=== PATIENT | male | born 1970 | race Caucasian/White ===

== ENCOUNTER 2017-08-24 21:40 | Inpatient (IN) | payer BC ==
--- NOTE | 2017-08-24 22:23 | PDOC ---
Attending Attestation - HPI HPI: 08/24/17 23:25 Patient is a 47 year old male with a significant past medical history of who presents to the ED with complaints of lightheadedness this afternoon. Patient reports feeling flushed this afternoon leading to a near syncopal episode. He reports experiencing these episodes while watching a sports game but does not know what might have triggered it. Patient reports experiencing episodes of SOB and chest pain. Patient currently denies any physical complaints in the ED. Denies nausea, vomiting. Denies fever, chills. Denies contact with sick individuals, out of state. Denies any other symptoms. Allergies: None Social history: No smoking. No alcohol. No illicit drugs. Surgical history: None PMD: Gianni Anaya <Torsten Benjamin - Last Filed: 08/24/17 23:25> - Resident Resident Name: RajanMadyson - ED Attending Attestation I have performed the following: I have examined & evaluated the patient, The case was reviewed & discussed with the resident, I agree w/resident's findings & plan, Exceptions are as noted - Physicial Exam PE: 08/29/17 19:28 *Physical Exam General Appearance: Yes: Appropriately Dressed. No: Apparent Distress, Intoxicated HEENT: positive: EOMI, ROMA, Normal ENT Inspection, Normal Voice, TMs Normal, Pharynx Normal. negative: Pale Conjunctivae, Photophobia, Scleral Icterus (R), Scleral Icterus (L) Neck: positive: Trachea midline, Normal Thyroid, Supple. negative: Tender, Rigid, Carotid bruit, Stridor, Lymphadenopathy (R), Lymphadenopathy (L), Thyromegaly Respiratory/Chest: positive: Lungs Clear, Normal Breath Sounds. negative: Chest Tender, Respiratory Distress, Accessory Muscle Use, Labored Respiration, RES, Crackles, Rales, Rhonchi, Stridor, Wheezing, Dullness Cardiovascular: positive: Regular Rhythm, Regular Rate, S1, S2. negative: Edema , JVD, Murmur, Bradycardia, Tachycardia Vascular Pulses: Dorsalis-Pedis (R): 2+, Doralis-Pedis (L): 2+ Gastrointestinal/Abdominal: positive: Normal Bowel Sounds, Flat, Soft. negative : Tender, Organomegaly, Pulsatile Mass, Increased Bowel Sounds, Decreased BS, Distended, Guarding, Rebound, Hernia, Hepatomegaly, Spleenomegaly Lymphatic: negative: Adenopathy, Tenderness Musculoskeletal: positive: Normal Inspection. negative: CVA Tenderness, Decreased Range of Motion Extremity: positive: Normal Capillary Refill, Normal Inspection, Normal Range of Motion, Pelvis Stable. negative: Tender, Pedal Edema, Swelling, Erythema Integumentary: positive: Normal Color, Dry, Warm. 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 negative: EOM Palsy, Facial Droop, Sensory Deficit - Medical Decision Making 08/29/17 19:28 Pt was admitted to hospital <Radhames Bliss - Last Filed: 08/29/17 19:28>
--- NOTE | 2017-08-24 22:36 | PDOC ---
History of Present Illness - General Chief Complaint: Syncope/Near Syncope Stated Complaint: Syncope/Near Syncope Time Seen by Provider: 08/24/17 21:42 - History of Present Illness Initial Comments: 08/24/17 22:14 Patient is a 47 y.o. male with a PMH of MVP and HTN who presents to our ED today after an isolated episode of syncope. Patient states he was watching a sporting event when he noticed facial flushing, palpitations and family noted a 2-3 minute syncopal episode with some bladder incontinence. Patient notes he consumed shrimp approximately 20 minutes prior to the episode and possibly has a remote h/o of shrimp allergy. Patient further notes his father of an [place] @ age 51. Patient denies any prior cardiac history or evaluation. NKDA Surgical: denies Social: denies nicotine, denies alcohol, denies recreational drugs PMD: Dr. Anaya Past History - Past Medical History Allergies/Adverse Reactions: Allergies Allergy/AdvReac Type Severity Reaction Status Date / Time No Known Allergies Allergy Verified 08/24/17 22:25 Home Medications: Ambulatory Orders Losartan/Hydrochlorothiazide [Losartan-Hctz 100-12.5 mg Tab] 1 each PO DAILY 04/03 - Suicide/Smoking/Psychosocial Hx Smoking History: Never smoked Have you smoked in the past 12 months: No Information on smoking cessation initiated: No Hx Alcohol Use: No Drug/Substance Use Hx: No Review of Systems - Review of Systems Constitutional: No: Chills, Fever HEENTM: No: Blurred Vision, Double Vision Respiratory: No: Shortness of Breath Cardiac (ROS): Yes: Lightheadedness, Palpitations, Syncope. No: Chest Pain All Other Systems: Reviewed and Negative *Physical Exam - Vital Signs Last Vital Signs Temp Pulse Resp BP Pulse Ox 98.7 F 67 20 121/69 98 08/24/17 21:54 08/24/17 21:54 08/24/17 21:54 08/24/17 21:54 08/24/17 21:54 - Physical Exam General Appearance: Yes: Nourished, Obese Neck: positive: Trachea midline, Supple Respiratory/Chest: positive: Lungs Clear Cardiovascular: positive: S1, S2, Murmur. negative: Edema, JVD Gastrointestinal/Abdominal: positive: Normal Bowel Sounds, Soft Extremity: positive: Normal Capillary Refill, Normal Inspection Integumentary: positive: Normal Color, Dry, Warm Neurologic: positive: Fully Oriented, Alert ED Treatment Course - LABORATORY CBC & Chemistry Diagram: 08/24/17 22:44 08/24/17 23:30 Medical Decision Making - Medical Decision Making 08/25/17 03:35 Patient is a 47 y.o. male who presents following a syncopal episode. Initial clinical suspicion for CVA vs. ACS vs. Arrhythmia. PLAN: 1. CT Head 2. Cardiac Profile, CBC, CMP, EKG CT Head negative for acute intracranial process. EKG shows NSR HR 59 with no deviations, normal intervals, possible T wave inversion in Lead III and good R wave progression in leads V1-V6. Repeat EKG shows NSR with HR 56 with T wave inversion in Lead III as well as poor R wave progression in Leads V1-V6 concerning for ischemia. Troponin 0.10 --> 0.16; patient to be given ASA and admitted to inpatient medicine floor for further evaluation including cardiac work up. *DC/Admit/Observation/Transfer Diagnosis at time of Disposition: Palpitations - Discharge Dispostion Disposition: HOME Condition at time of disposition: Good Admit: Yes - Referrals - Patient Instructions - Post Discharge Activity
[2017-08-24 22:58] LABS: BASO % 0.3 % (0-2.0); EOS % 0.8 % (0-4.5); HEMATOCRIT 38.8 % (35.4-49); HEMOGLOBIN 13.5 GM/dL (11.7-16.9); LYMPH % 13.5 % (8-40); MCH 30.4 pg (25.7-33.7); MCHC 34.7 g/dl (32.0-35.9); MEAN CELL VOLUME 87.5 fl (80-96); MEAN PLT VOLUME 9.7 fl (7.5-11.1); MONO % 5.2 % (3.8-10.2); NEUT % 80.2 % (42.8-82.8); PLATELET COUNT 177 K/MM3 (134-434); RBC 4.43 M/mm3 (4.00-5.60); RDW 13.3 % (11.9-15.9); WHITE BLOOD COUNT 8.3 K/mm3 (4.0-10.0)
[2017-08-25 00:06] LABS: ALBUMIN 4.2 g/dl (3.4-5.0); ALK PHOS 61 U/L (45-117); ANION GAP 9 (8-16); BILIRUBIN,TOTAL 0.4 mg/dL (0.2-1.0); BLOOD UREA NITROGEN 27 mg/dL (7-18); CALCIUM 8.6 mg/dL (8.5-10.1); CHLORIDE 105 mmol/L (98-107); CO2 27 mmol/L (21-32); CREATININE 1.1 mg/dL (0.7-1.3); GLUCOSE,RANDOM 145 mg/dL (74-106); POTASSIUM 3.8 mmol/L (3.5-5.1); SGOT/AST 26 U/L (15-37); SGPT/ALT 51 U/L (12-78); SODIUM 141 mmol/L (136-145); TOT PROT 7.3 g/dl (6.4-8.2)
[2017-08-25] MEDS ORDERED: ASPIRIN 81 MG CHEWABLE TABLETS PO ONE (03:07)
[2017-08-25] MEDS ORDERED: ASPIRIN 81 MG CHEWABLE TABLETS ONE (03:12)
--- NOTE | 2017-08-25 04:20 | HP ---
CHIEF COMPLAINT: LOC, lightheaded PCP: Gianni [phone] HISTORY OF PRESENT ILLNESS: This is a 47 year old male with PMH MVP and HTN who presented to the ED today from home s/p episode where his face became flushed, he felt lightheaded and family reports he was unresponsive for a few minutes. Pt reports that he later noticed in the ED that his underwear had some urine on it as well. Pt denies any episodes like this in the past. He denies chest pain, SOB, abdominal pain, N /V/D. ER course was notable for: (1) Trop 0.10 (2) Bun 27/Cr 1.1 Recent Travel: Pt denies PAST MEDICAL HISTORY: MVP, HTN PAST SURGICAL HISTORY: Right ankle poorly healed fracture repair Social History: Smoking: pt denies Alcohol: pt denies Drugs: pt denies Family History: father [place], age 65 mother alive, HTN one sibling out of 5 with HTN, none with other cardiac disease Allergies No Known Allergies Allergy (Verified 08/24/17 22:25) HOME MEDICATIONS: 3 Medication Instructions Recorded Losartan/Hydrochlorothiazide 1 each PO DAILY 08/24/17 [Losartan-Hctz 100-12.5 mg Tab] pt also reports taking one dose of motrin last evening for shoulder injury REVIEW OF SYSTEMS CONSTITUTIONAL: Absent: fever, chills, diaphoresis, generalized weakness, malaise, loss of appetite, weight change HEENT: Absent: rhinorrhea, nasal congestion, throat pain, throat swelling, difficulty swallowing, mouth swelling, ear pain, eye pain, visual changes CARDIOVASCULAR: Present: syncope, lightheadedness Absent: chest pain, palpitations, irregular heart rate, peripheral edema RESPIRATORY: Absent: cough, shortness of breath, dyspnea with exertion, orthopnea, wheezing, stridor, hemoptysis GASTROINTESTINAL: Absent: abdominal pain, abdominal distension, nausea, vomiting, diarrhea, constipation, melena, hematochezia GENITOURINARY: Absent: dysuria, frequency, urgency, hesitancy, hematuria, flank pain, genital pain MUSCULOSKELETAL: Absent: myalgia, arthralgia, joint swelling, back pain, neck pain SKIN: Absent: rash, itching, pallor HEMATOLOGIC/IMMUNOLOGIC: Absent: easy bleeding, easy bruising, lymphadenopathy, frequent infections ENDOCRINE: Absent: unexplained weight gain, unexplained weight loss, heat intolerance, cold intolerance NEUROLOGIC: Present: bladder incontinence Absent: headache, focal weakness or paresthesias, dizziness, unsteady gait, seizure, mental status changes, bowel incontinence PSYCHIATRIC: Absent: anxiety, depression, suicidal or homicidal ideation, hallucinations. PHYSICAL EXAMINATION Vital Signs - 24 hr 3 08/24/17 08/24/17 08/25/17 21:54 22:20 03:43 Temperature 98.7 F Pulse Rate 67 Pulse Rate [ Left Radial] Respiratory 20 18 Rate Blood Pressure 121/69 Blood Pressure 121/69 [Left Arm] O2 Sat by Pulse 98 97 98 Oximetry (%) GENERAL: Awake, alert, and fully oriented, in no acute distress. HEAD: Normal with no signs of trauma. EYES: Pupils equal, round and reactive to light, extraocular movements intact, sclera anicteric, conjunctiva clear. No lid lag. EARS, NOSE, THROAT: Ears normal, nares patent, oropharynx clear without exudates. Moist mucous membranes. NECK: Normal range of motion, supple without lymphadenopathy, JVD, or masses. LUNGS: Breath sounds equal, clear to auscultation bilaterally. No wheezes, and no crackles. No accessory muscle use. HEART: Regular rate and rhythm, normal S1 and S2, 1/6 murmur, no rub or gallop. ABDOMEN: Soft, nontender, not distended, normoactive bowel sounds, no guarding, no rebound, no masses. No hepatomegaly or splenomegaly. MUSCULOSKELETAL: Normal range of motion at all joints. No bony deformities or tenderness. No CVA tenderness. UPPER EXTREMITIES: 2+ pulses, warm, well-perfused. No cyanosis. No clubbing. No peripheral edema. LOWER EXTREMITIES: 2+ pulses, warm, well-perfused. No calf tenderness. No peripheral edema. NEUROLOGICAL: Cranial nerves II-XII intact. Normal speech. Normal gait. PSYCHIATRIC: Cooperative. Good eye contact. Appropriate mood and affect. SKIN: Warm, dry, normal turgor, no rashes or lesions noted, normal capillary refill. Laboratory Results - last 24 hr 3 08/24/17 08/24/17 08/24/17 22:44 22:44 22:44 WBC 8.3 RBC 4.43 Hgb 13.5 Hct 38.8 MCV 87.5 MCH 30.4 MCHC 34.7 RDW 13.3 Plt Count 177 MPV 9.7 Neutrophils % 80.2 Lymphocytes % 13.5 Monocytes % 5.2 Eosinophils % 0.8 Basophils % 0.3 Sodium Cancelled Potassium Cancelled Chloride Cancelled Carbon Dioxide Cancelled Anion Gap Cancelled BUN Cancelled Creatinine Cancelled Creat Clearance w eGFR Cancelled Random Glucose Cancelled Calcium Cancelled Total Bilirubin Cancelled AST Cancelled ALT Cancelled Alkaline Phosphatase Cancelled Creatine Kinase Cancelled Creatine Kinase Index CK-MB (CK-2) Troponin I Cancelled B-Natriuretic Peptide Cancelled Total Protein Cancelled Albumin Cancelled 3 08/24/17 08/24/17 08/25/17 23:30 23:30 01:27 WBC RBC Hgb Hct MCV MCH MCHC RDW Plt Count MPV Neutrophils % Lymphocytes % Monocytes % Eosinophils % Basophils % Sodium 141 Potassium 3.8 Chloride 105 Carbon Dioxide 27 Anion Gap 9 BUN 27 H Creatinine 1.1 Creat Clearance w eGFR > 60 Random Glucose 145 H Calcium 8.6 Total Bilirubin 0.4 AST 26 ALT 51 Alkaline Phosphatase 61 Creatine Kinase 324 H 301 Creatine Kinase Index 0.7 0.8 CK-MB (CK-2) 2.406 2.494 Troponin I 0.10 H 0.16 H D B-Natriuretic Peptide Total Protein 7.3 Albumin 4.2 ECG 08/24/17 21:59 sinus bradycardia vent rate 59, QTC 429 Inferior infarct, age undetermined Anterolateral infarct, age undetermined TWI lead 3, avF 08/25/17 01:43 Sinus bradycardia vent rate 56, QTC 420 Inferior infarct age undetermined TWI in aVF normalized, still present in lead 3 Radiology Reports CXR- no obvious infiltrates or effusions, ? right diaphramatic herniation EXAM: CT HEAD without contrast THIS IS A PRELIMINARY REPORT FROM [facility] HISTORY: Syncope COMPARISON: None. FINDINGS: Brain parenchyma is normal in attenuation with no mass or hematoma. There is no midline shift. Smith and white matter differentiation is normal. Ventricles are normal. Sulci and extra-axial CSF spaces are normal. Intracranial vascular structures are normal in attenuation. There is no calvarial fracture. Paranasal sinuses are normally aerated. IMPRESSION: Normal head THIS DOCUMENT HAS BEEN ELECTRONICALLY SIGNED Saul Aden MD 08/25/2017 01:10 EST ASSESSMENT/PLAN: 47yM with PMH HTN, MVP presented to the ED s/p transient loss of consciousness. transient LOC/?syncope - CT head without acute changes - monitor on tele - trend troponin - cardiology consult - echocardiogram ordered abnormal ECG - pt reports that his MD told him that his ECG appears as if he had an old [place] but he has not - call PCP in am to get copy of old ECG - repeat in am elevated troponin - trend troponins - cardiology consult - consider stress test, kept NPO in case. - pt reports he had a stress about 8 years ago and it was normal. Elevated BUN - will give IVF NS @ 125cc/hr - repeat in am. HTN - hold HCTZ as BUN elevated, cont losartan. DVT PPX - deferred as anticipated LOS less than 48 hourse Dispo: pt currently requires further observation for management of his emergent condition. Visit type - Emergency Visit Emergency Visit: Yes ED Registration Date: 08/24/17 Care time: The patient presented to the Emergency Department on the above date and was hospitalized for further evaluation of their emergent condition. - New Patient This patient is new to me today: Yes Date on this admission: 08/25/17 - Critical Care Critical Care patient: No
[2017-08-25] MEDS ORDERED: SODIUM CHLORIDE 1,000 ML IV SCH (04:30)
[2017-08-25] MEDS ORDERED: PNEUMOC 13-VAL CONJ-DIP CRM/PF 0.5 ML DISP.SYRIN IM ONE (04:41)
[2017-08-25 07:43] VITALS: BMI 33.2
[2017-08-25 08:01] LABS: BASO % 0.5 % (0-2.0); EOS % 2.9 % (0-4.5); HEMATOCRIT 39.7 % (35.4-49); HEMOGLOBIN 13.3 GM/dL (11.7-16.9); LYMPH % 22.8 % (8-40); MCH 29.4 pg (25.7-33.7); MCHC 33.5 g/dl (32.0-35.9); MEAN CELL VOLUME 87.9 fl (80-96); MEAN PLT VOLUME 9.2 fl (7.5-11.1); MONO % 9.3 % (3.8-10.2); NEUT % 64.5 % (42.8-82.8); PLATELET COUNT 160 K/MM3 (134-434); RBC 4.51 M/mm3 (4.00-5.60); WHITE BLOOD COUNT 6.7 K/mm3 (4.0-10.0)
[2017-08-25 08:40] LABS: CHLORIDE 108 mmol/L (98-107); POTASSIUM 4.3 mmol/L (3.5-5.1); SODIUM 141 mmol/L (136-145)
[2017-08-25 08:50] LABS: ANION GAP 6 (8-16); BLOOD UREA NITROGEN 21 mg/dL (7-18); CALCIUM 8.1 mg/dL (8.5-10.1); CO2 27 mmol/L (21-32); GLUCOSE,RANDOM 98 mg/dL (74-106); MAGNESIUM 2.2 mg/dL (1.8-2.4); PHOSPHOROUS 3.3 mg/dL (2.5-4.9)
[2017-08-25] MEDS ORDERED: FLU VACCINE QUAD 60 MCG/0.5 ML (MDV 17-18) IM ONE (09:00)
[2017-08-25] MEDS ORDERED: PNEUMOCOCCAL 23 VACCINE 0.5 ML VIAL IM ONE (09:00)
[2017-08-25] MEDS: LOSARTAN POTASSIUM 50 MG TABLET (FP) PO SCH (09:48)
[2017-08-25] MEDS ORDERED: PATIENT'S OWN MEDICATION (NON-FORMULARY) (Losartan/Hydrochlorothiazide [Losartan-Hctz 100- PO SCH (10:00)
--- NOTE | 2017-08-25 10:21 | EKG ---
Test Reason : Blood Pressure : / mmHG Vent. Rate : 056 BPM Atrial Rate : 056 BPM P-R Int : 198 ms QRS Dur : 104 ms QT Int : 436 ms P-R-T Axes : 026 039 018 degrees QTc Int : 420 ms SINUS BRADYCARDIA INFERIOR INFARCT (CITED ON OR BEFORE 24-AUG-2017) ABNORMAL ECG Confirmed by MD PRITI, RODNEY ([id number]) on 08/25/2017 10:21:02 AM Referred By: Confirmed By:RODNEY MARCOS MD
--- NOTE | 2017-08-25 10:22 | EKG ---
Test Reason : Blood Pressure : / mmHG Vent. Rate : 059 BPM Atrial Rate : 059 BPM P-R Int : 194 ms QRS Dur : 104 ms QT Int : 434 ms P-R-T Axes : 028 034 004 degrees QTc Int : 429 ms SINUS BRADYCARDIA INFERIOR INFARCT , AGE UNDETERMINED ANTEROLATERAL INFARCT , AGE UNDETERMINED ABNORMAL ECG NO PREVIOUS ECGS AVAILABLE Confirmed by MD PRITI, RODNEY ([id number]) on 08/25/2017 10:22:02 AM Referred By: Confirmed By:RODNEY MARCOS MD
--- NOTE | 2017-08-25 10:55 | PN ---
Physical Exam: SUBJECTIVE: Patient seen and examined. present. Feels well, voices no complaints. No further episodes of dizziness or lightheadedness. PCP: Dr. Gianni Anaya - [facility] OBJECTIVE: Vital Signs Period Temp Pulse Resp BP Sys/Jeffers Pulse Ox Last 24 Hr 97.8 F-98.7 F 54-81 18-20 121-166/69-86 97-100 GENERAL: The patient is awake, alert, and fully oriented, in no acute distress. LUNGS: CTA HEART: RRR, S1, S2 ABDOMEN: Soft, nontender, nondistended, normoactive bowel sounds EXTREMITIES: 2+ pulses, warm, well-perfused, no edema. NEUROLOGICAL: Cranial nerves II through XII grossly intact. Normal speech; moves all extremities freely Laboratory Results - last 24 hr 08/24/17 08/24/17 08/24/17 22:44 22:44 22:44 WBC 8.3 RBC 4.43 Hgb 13.5 Hct 38.8 MCV 87.5 MCH 30.4 MCHC 34.7 RDW 13.3 Plt Count 177 MPV 9.7 Neutrophils % 80.2 Lymphocytes % 13.5 Monocytes % 5.2 Eosinophils % 0.8 Basophils % 0.3 Sodium Cancelled Potassium Cancelled Chloride Cancelled Carbon Dioxide Cancelled Anion Gap Cancelled BUN Cancelled Creatinine Cancelled Creat Clearance w eGFR Cancelled Random Glucose Cancelled Calcium Cancelled Phosphorus Magnesium Total Bilirubin Cancelled AST Cancelled ALT Cancelled Alkaline Phosphatase Cancelled Creatine Kinase Cancelled Creatine Kinase Index CK-MB (CK-2) Troponin I Cancelled B-Natriuretic Peptide Cancelled Total Protein Cancelled Albumin Cancelled 08/24/17 08/24/17 08/25/17 23:30 23:30 01:27 WBC RBC Hgb Hct MCV MCH MCHC RDW Plt Count MPV Neutrophils % Lymphocytes % Monocytes % Eosinophils % Basophils % Sodium 141 Potassium 3.8 Chloride 105 Carbon Dioxide 27 Anion Gap 9 BUN 27 H Creatinine 1.1 Creat Clearance w eGFR > 60 Random Glucose 145 H Calcium 8.6 Phosphorus Magnesium Total Bilirubin 0.4 AST 26 ALT 51 Alkaline Phosphatase 61 Creatine Kinase 324 H 301 Creatine Kinase Index 0.7 0.8 CK-MB (CK-2) 2.406 2.494 Troponin I 0.10 H 0.16 H D B-Natriuretic Peptide Total Protein 7.3 Albumin 4.2 08/25/17 08/25/17 07:25 07:25 WBC 6.7 RBC 4.51 Hgb 13.3 Hct 39.7 MCV 87.9 MCH 29.4 MCHC 33.5 RDW 13.0 Plt Count 160 MPV 9.2 Neutrophils % 64.5 Lymphocytes % 22.8 D Monocytes % 9.3 Eosinophils % 2.9 D Basophils % 0.5 Sodium 141 Potassium 4.3 Chloride 108 H Carbon Dioxide 27 Anion Gap 6 L BUN 21 H D Creatinine 1.0 Creat Clearance w eGFR Random Glucose 98 D Calcium 8.1 L Phosphorus 3.3 Magnesium 2.2 Total Bilirubin AST ALT Alkaline Phosphatase Creatine Kinase Creatine Kinase Index CK-MB (CK-2) Troponin I 0.10 H D B-Natriuretic Peptide Total Protein Albumin Active Medications Generic Name Dose Route Start Last Admin Trade Name Freq PRN Reason Stop Dose Admin Losartan Potassium 100 mg 08/25/17 10:00 08/25/17 09:48 Cozaar - PO 100 mg DAILY EVELYN Administration ASSESSMENT/PLAN 47 year-old with a PMH significant for HTN and mitral valve prolapse. Placed on observation for syncopal episode. Syncope --prodrome of eye redness and burning sensation, palpitations and lightheadedness; sat down and passed out in chair; next thing remembers is EMS presence; no report of seizure-type activity, daughter witnessed entire episode --troponins flat trendin.10-->0.16-->0.10 --ECG negative for acute ischemic change; baseline ECG obtained from PCP in chart --CXR unremarkable --US carotids ordered --Echo done, awaiting read --Exercise test pending --lipid profile ordered --cardiology following Hypertension --continue losartan Mitral valve prolapse --echo pending FEN Fluids: PO intake adequate Electrolytes: replete if indicated Nutrition: low sodium DVT prophylaxis: start lovenox tomorrow if still here. Dispo: requires continued observation. Visit type - Emergency Visit Emergency Visit: Yes ED Registration Date: 08/25/17 Care time: The patient presented to the Emergency Department on the above date and was hospitalized for further evaluation of their emergent condition. - New Patient This patient is new to me today: Yes Date on this admission: 08/25/17 - Critical Care Critical Care patient: No
--- NOTE | 2017-08-25 14:41 | CON.CARD ---
Cardiology Consult (text) - Consultation Consultation Note: CC: syncope 47 y.o. male with a PMH of HTN who p/w syncope. Patient states he was watching television when he noticed facial flushing and palpitations. He thought he was having an allergic reaction and called 911. He subsequently began to feel lightheaded. While seated and on the phone with 911, his daughter witnessed him slump over and he became unresponsive despite stimulation/throwing cold water on him. No seizure activity. He was unresponsive until EMS arrived. Per family report, he was given oxygen and vitals were stable. Upon arousal, there was no post-ictal sx's noted. No prior history of presyncope/syncope. Patient is athletic and participates in martial arts and kickboxing without limitation 4 days a week. No orthopnea, pnd, le edema, cp, sob, bleeding. pmhx/pshx: per phi fam hx; father of an [place] @ age 65 Social: never smoker, denies alcohol, denies recreational drugs ros: per hpi. no f/c/s, n/v/d, h/a, cough, congestion, rashes, poor po intake. Ambulatory Orders Losartan [Losartan 100 mg Tab] 1 each PO DAILY 08/24/17 Current Medications Losartan Potassium (Cozaar -) 100 mg PO DAILY EVELYN Last Admin: 08/25/17 09:48 Dose: 100 mg Vital Signs - 24 hr 08/24/17 08/24/17 08/25/17 21:54 22:20 03:24 Temperature 98.7 F Pulse Rate 67 Pulse Rate [ Left Radial] Respiratory 20 18 Rate Blood Pressure 121/69 Blood Pressure 121/69 [Left Arm] O2 Sat by Pulse 98 97 98 Oximetry (%) 08/25/17 08/25/17 08/25/17 03:43 04:32 09:00 Temperature 97.8 F 98 F Pulse Rate 54 L 58 L Pulse Rate [ 81 Left Radial] Respiratory 18 20 18 Rate Blood Pressure 166/78 146/86 Blood Pressure 130/70 [Left Arm] O2 Sat by Pulse 98 100 Oximetry (%) 08/25/17 12:24 Temperature Pulse Rate Pulse Rate [ Left Radial] Respiratory Rate Blood Pressure Blood Pressure [Left Arm] O2 Sat by Pulse 98 Oximetry (%) Intake & Output 08/23/17 08/24/17 08/25/17 12/09/17 07:59 07:59 07:59 07:59 Weight 231 lb 8 oz nad, calm jvd flat, neck supple ctab, nl effort RRR nl s1, s2 no mrg + bs soft nt nd ext without e/c/c + dp/pt no carotid bruits no jaundice, diaphoresis. aaox3 CBC, BMP 08/25/17 07:25 08/25/17 07:25 Laboratory Tests 08/24/17 08/24/17 08/25/17 23:30 23:30 01:27 Magnesium Creatine Kinase 324 H 301 CK-MB (CK-2) 2.406 2.494 Troponin I 0.10 H 0.16 H D Albumin 4.2 08/25/17 07:25 Magnesium 2.2 Creatine Kinase CK-MB (CK-2) Troponin I 0.10 H D Albumin Laboratory Tests 08/25/17 14:25 Troponin I 0.03 D Free T4 1.08 ekg 08/24: sb, 59 bpm. Inferior infarct (present on prior ekg from pmd office). loss of r wave in lateral leads and development of transient q wave in V3, V4, V5. ekg 08/25: sb, 56 bpm. inferior infract. return of r wave, no residual q wave in precordial leads. tele: SB, krystian in the high 40's. echo 08/2017: nl lv/rv size/fn. 1+ lae. 1+ mr. rvsp 30-40. stress 08/2017: 93% PHR (162 bpm). bline hypertensive response to exercise ( 150/86 --> 220/58) 13.9 METS. No ischemic ekg changes or arrhythmias. basal- mid lateral wall, distal anterolateral and anteroapical perfusion defects c/w ischemia. EF 69%. - reviewed images with veneer puller. overall decreased counts on stress images may be causing false positive given lack of EKG changes at 13+ METS. no TID. However, location of perfusion abnormality consistent with location of EKG changes. A/P 47 y.o. male with a PMH of HTN who p/w syncope. syncope - although intermediate troponin elevation with flat trend and negative MB, patient with dynamic lateral ekg changes and evidence of lateral ischemia on stress testing. Additionally patient with + family hx.. Will treat like ACS and discuss with interventionalist regarding transfer for cardiac catheterization. - start lovenox, plavix, daily asa. s/p 325 mg of asa today. add high dose statin. Avoid beta blockade and nitrates (bradycardia and possible posterior ischemia). - con't tele monitoring. monitor for bradyarrhythmias. - per report, no evidence of seizure activity. head CT negative for acute infarct. Clinical history not c/w PE. - evaluation of non-cardiac etiology of syncope per pmd. bradycardia - con't telemetry monitoring. avoid av eddie blockade. - thyroid hormone wnl. - asx here despite heart rates in high 40's. - lyte repletion prn. HTN: - con't home losartan
[2017-08-25] MEDS ORDERED: CLOPIDOGREL BISULFATE 300 MG TABLET PO STA (20:43)
[2017-08-25 21:11] LABS: CHOLESTEROL 174 mg/dL (50-200); HDL CHOLESTEROL 70 mg/dL (40-60); LDL CHOLESTEROL (ONLY SJRH) 85 mg/dL (5-100); TRIGLYCERIDES 77 mg/dL (35-160)
[2017-08-25] MEDS: ENOXAPARIN NA (PORCINE) 100 MG/1 ML DISP.SYRIN SQ SCH (21:27)
[2017-08-25] MEDS: ATORVASTATIN CA 80 MG TABLET (FP) PO SCH (21:27)
[2017-08-25] MEDS ORDERED: ENOXAPARIN NA (PORCINE) 100 MG/1 ML DISP.SYRIN SQ SCH (22:00)
[2017-08-26 07:57] LABS: BASO % 0.5 % (0-2.0); EOS % 3.5 % (0-4.5); HEMATOCRIT 39.6 % (35.4-49); HEMOGLOBIN 13.4 GM/dL (11.7-16.9); LYMPH % 33.3 % (8-40); MCH 29.6 pg (25.7-33.7); MCHC 33.7 g/dl (32.0-35.9); MEAN CELL VOLUME 87.7 fl (80-96); MEAN PLT VOLUME 9.6 fl (7.5-11.1); NEUT % 52.7 % (42.8-82.8); PLATELET COUNT 153 K/MM3 (134-434); RBC 4.52 M/mm3 (4.00-5.60); RDW 13.3 % (11.9-15.9); WHITE BLOOD COUNT 4.9 K/mm3 (4.0-10.0)
[2017-08-26 08:28] LABS: ALBUMIN 3.6 g/dl (3.4-5.0); CALCIUM 8.7 mg/dL (8.5-10.1); CHLORIDE 106 mmol/L (98-107); GLUCOSE,RANDOM 84 mg/dL (74-106); MAGNESIUM 2.1 mg/dL (1.8-2.4); PHOSPHOROUS 2.9 mg/dL (2.5-4.9); POTASSIUM 4.2 mmol/L (3.5-5.1); SGPT/ALT 42 U/L (12-78); SODIUM 142 mmol/L (136-145)
[2017-08-26 08:33] LABS: ALK PHOS 51 U/L (45-117); ANION GAP 7 (8-16); BILIRUBIN,TOTAL 0.6 mg/dL (0.2-1.0); BLOOD UREA NITROGEN 18 mg/dL (7-18); CO2 29 mmol/L (21-32); SGOT/AST 23 U/L (15-37); TOT PROT 6.6 g/dl (6.4-8.2)
[2017-08-26] MEDS: LOSARTAN POTASSIUM 50 MG TABLET (FP) PO SCH (09:02)
[2017-08-26] MEDS: ENOXAPARIN NA (PORCINE) 100 MG/1 ML DISP.SYRIN SQ SCH ×2 (09:02→21:40)
[2017-08-26] MEDS ORDERED: ASPIRIN 81 MG CHEWABLE TABLETS PO SCH (10:00)
[2017-08-26] MEDS ORDERED: CLOPIDOGREL BISULFATE 75 MG TABLET (FP) PO SCH (10:00)
--- NOTE | 2017-08-26 10:42 | PN ---
Progress Note (short form) - Note Progress Note: CC: syncope S: no cp, palps, dizziness, sob, loc. Current Medications Aspirin (Asa -) 81 mg PO DAILY [facility] Last Admin: 08/26/17 09:02 Dose: 81 mg Atorvastatin Calcium (Lipitor -) 80 mg PO HS [facility] Last Admin: 08/25/17 21:27 Dose: 80 mg Clopidogrel Bisulfate (Plavix -) 75 mg PO DAILY [facility] Last Admin: 08/26/17 09:02 Dose: 75 mg Enoxaparin Sodium (Lovenox -) 100 mg SQ BID [facility] Last Admin: 08/26/17 09:02 Dose: 100 mg Losartan Potassium (Cozaar -) 100 mg PO DAILY [facility] Last Admin: 08/26/17 09:02 Dose: 100 mg Vital Signs - 24 hr 08/25/17 08/25/17 08/25/17 12:24 18:00 20:00 Temperature 98.5 F 98.0 F Pulse Rate 68 56 L Respiratory 19 20 Rate Blood Pressure 137/78 148/92 O2 Sat by Pulse 98 100 Oximetry (%) 08/26/17 08/26/17 08/26/17 02:00 04:00 06:00 Temperature 99.1 F 98.0 F Pulse Rate 57 L 52 L Respiratory 20 20 20 Rate Blood Pressure 130/77 124/65 O2 Sat by Pulse 100 Oximetry (%) 08/26/17 10:00 Temperature 98.5 F Pulse Rate 57 L Respiratory 18 Rate Blood Pressure 146/90 O2 Sat by Pulse 100 Oximetry (%) Intake & Output 08/24/17 08/25/17 08/26/17 08/27/17 07:59 07:59 07:59 07:59 Weight 231 lb 8 oz nad, calm jvd flat, neck supple ctab, nl effort RRR nl s1, s2 no mrg + bs soft nt nd ext without e/c/c + dp/pt no carotid bruits no jaundice, diaphoresis. aaox3 CBC, BMP 08/26/17 05:45 08/26/17 05:45 Laboratory Tests 08/25/17 08/25/17 08/26/17 08:00 14:25 05:45 Magnesium 2.1 Total Bilirubin 0.6 D AST 23 ALT 42 Alkaline Phosphatase 51 Cholesterol 174 Total LDL Cholesterol 85 HDL Cholesterol 70 H Free T4 1.08 ekg 08/24: sb, 59 bpm. Inferior infarct (present on prior ekg from pmd office). loss of r wave in lateral leads and development of transient q wave in V3, V4, V5. ekg 08/25: sb, 56 bpm. inferior infract. return of r wave, no residual q wave in precordial leads. tele: SB/sinus arrhythmia, krystian in the high 40's. no pathologic bradyarrhythmias echo 08/2017: nl lv/rv size/fn. 1+ lae. 1+ mr. rvsp 30-40. stress 08/2017: 93% PHR (162 bpm). bline hypertensive response to exercise ( 150/86 --> 220/58) 13.9 METS. No ischemic ekg changes or arrhythmias. basal- mid lateral wall, distal anterolateral and anteroapical perfusion defects c/w ischemia. EF 69%. - reviewed images with care administrative tech. overall decreased counts on stress images may be causing false positive given lack of EKG changes at 13+ METS. no TID. However, location of perfusion abnormality consistent with location of EKG changes. carotid u/s: no carotid stenosis. patent rt vert. Left vert was not well visualized. can consider further imaging. A/P 47 y.o. male with a PMH of HTN who p/w syncope. syncope - although intermediate troponin elevation with flat trend and negative MB, patient with dynamic lateral ekg changes and evidence of lateral ischemia on stress testing. Additionally patient with + family hx.. Will treat like ACS. Started lovenox, plavix, daily asa, high dose statin. Avoid beta blockade and nitrates (bradycardia and possible posterior ischemia). . - Discussed with interventionalist --> plan to transfer to [facility] for cardiac catheterization. NPO p MN. Hold am lovenox dose. - con't tele monitoring. thus far no bradyarrhythmias. - per report, no evidence of seizure activity. head CT negative for acute infarct. Clinical history not c/w PE. - evaluation of non-cardiac etiology of syncope per pmd. bradycardia - con't telemetry monitoring. avoid av eddie blockade. - thyroid hormone wnl. - asx here despite heart rates in high 40's. - lyte repletion prn. HTN: - con't home losartan
--- NOTE | 2017-08-26 19:56 | PN ---
Physical Exam: SUBJECTIVE: Patient seen and examined OBJECTIVE: Vital Signs Period Temp Pulse Resp BP Sys/Jeffers Pulse Ox Last 24 Hr 98.0 F-99.1 F 52-63 18-20 124-150/65-92 100-100 GENERAL: The patient is awake, alert, and fully oriented, in no acute distress. HEAD: Normal with no signs of trauma. EYES: PERRL, extraocular movements intact, sclera anicteric, conjunctiva clear. No ptosis. ENT: Ears normal, nares patent, oropharynx clear without exudates, moist mucous membranes. NECK: Trachea midline, full range of motion, supple. LUNGS: Breath sounds equal, clear to auscultation bilaterally, no wheezes, no crackles, no accessory muscle use. HEART: Regular rate and rhythm, S1, S2 without murmur, rub or gallop. ABDOMEN: Soft, nontender, nondistended, normoactive bowel sounds, no guarding, no rebound, no hepatosplenomegaly, no masses. EXTREMITIES: 2+ pulses, warm, well-perfused, no edema. NEUROLOGICAL: Cranial nerves II through XII grossly intact. Normal speech, gait not observed. PSYCH: Normal mood, normal affect. SKIN: Warm, dry, normal turgor, no rashes or lesions noted Laboratory Results - last 24 hr 08/25/17 08/26/17 08/26/17 08:00 05:45 05:45 WBC 4.9 RBC 4.52 Hgb 13.4 Hct 39.6 MCV 87.7 MCH 29.6 MCHC 33.7 RDW 13.3 Plt Count 153 MPV 9.6 Neutrophils % 52.7 Lymphocytes % 33.3 D Monocytes % 10.0 Eosinophils % 3.5 Basophils % 0.5 Sodium 142 Potassium 4.2 Chloride 106 Carbon Dioxide 29 Anion Gap 7 L BUN 18 Creatinine 1.0 Creat Clearance w eGFR > 60 Random Glucose 84 Calcium 8.7 Phosphorus 2.9 Magnesium 2.1 Total Bilirubin 0.6 D AST 23 ALT 42 Alkaline Phosphatase 51 Total Protein 6.6 Albumin 3.6 Triglycerides 77 Cholesterol 174 Total LDL Cholesterol 85 HDL Cholesterol 70 H Active Medications Generic Name Dose Route Start Last Admin Trade Name Freq PRN Reason Stop Dose Admin Aspirin 81 mg 08/26/17 10:00 08/26/17 09:02 Asa - PO 81 mg DAILY EVELYN Administration Atorvastatin Calcium 80 mg 08/25/17 22:00 08/25/17 21:27 Lipitor - PO 80 mg HS EVELYN Administration Clopidogrel Bisulfate 75 mg 08/26/17 10:00 08/26/17 09:02 Plavix - PO 75 mg DAILY EVELYN Administration Enoxaparin Sodium 100 mg 08/25/17 20:35 08/26/17 09:02 Lovenox - SQ 100 mg BID EVELYN Administration Losartan Potassium 100 mg 08/25/17 10:00 08/26/17 09:02 Cozaar - PO 100 mg DAILY [facility]N Administration ASSESSMENT/PLAN: 47 year-old with a PMH significant for HTN and mitral valve prolapse. Placed on observation for syncopal episode. NSTEMI Bradycardia --troponins: 0.10-->0.16-->0.10 --Echo: LV normal; RV normal; mild MR; mild TR; mild to moderate PI --Exercise nuclear stress: small, mild basal to mid lateral, distal anterolateral, and anteroapical wall defects slightly worse on stress imaging; cannot r/o mild ischemia --avoid beta blockade and nitrates due to bradycardia and possible posterior ischemia --plan to transfer patient to [facility] for cardiac cath --continue ASA, Lipitor, Plavix, full-dose lovenox Hypertension --continue losartan FEN Fluids: PO intake adequate Electrolytes: replete if indicated Nutrition: low sodium DVT prophylaxis: full dose lovenox Dispo: requires continued observation. Visit type - Emergency Visit Emergency Visit: Yes ED Registration Date: 08/25/17 Care time: The patient presented to the Emergency Department on the above date and was hospitalized for further evaluation of their emergent condition. - New Patient This patient is new to me today: No - Critical Care Critical Care patient: No
--- NOTE | 2017-08-26 20:01 | DS ---
Physical Exam: SUBJECTIVE: Patient seen and examined OBJECTIVE: Vital Signs Period Temp Pulse Resp BP Sys/Jeffers Pulse Ox Last 24 Hr 98.0 F-99.1 F 52-63 18-20 124-150/65-90 100-100 PHYSICAL EXAM GENERAL: The patient is awake, alert, and fully oriented, in no acute distress. HEAD: Normal with no signs of trauma. EYES: PERRL, extraocular movements intact, sclera anicteric, conjunctiva clear. ENT: Ears normal, nares patent, oropharynx clear without exudates, moist mucous membranes. NECK: Trachea midline, full range of motion, supple. LUNGS: Breath sounds equal, clear to auscultation bilaterally, no wheezes, no crackles, no accessory muscle use. HEART: Regular rate and rhythm, S1, S2 without murmur, rub or gallop. ABDOMEN: Soft, nontender, nondistended, normoactive bowel sounds, no guarding, no rebound, no hepatosplenomegaly, no masses. EXTREMITIES: 2+ pulses, warm, well-perfused, no edema. NEUROLOGICAL: Cranial nerves II through XII grossly intact. Normal speech, gait not observed. PSYCH: Normal mood, normal affect. SKIN: Warm, dry, normal turgor, no rashes or lesions noted. LABS Laboratory Results - last 24 hr 08/25/17 08/26/17 08/26/17 08:00 05:45 05:45 WBC 4.9 RBC 4.52 Hgb 13.4 Hct 39.6 MCV 87.7 MCH 29.6 MCHC 33.7 RDW 13.3 Plt Count 153 MPV 9.6 Neutrophils % 52.7 Lymphocytes % 33.3 D Monocytes % 10.0 Eosinophils % 3.5 Basophils % 0.5 Sodium 142 Potassium 4.2 Chloride 106 Carbon Dioxide 29 Anion Gap 7 L BUN 18 Creatinine 1.0 Creat Clearance w eGFR > 60 Random Glucose 84 Calcium 8.7 Phosphorus 2.9 Magnesium 2.1 Total Bilirubin 0.6 D AST 23 ALT 42 Alkaline Phosphatase 51 Total Protein 6.6 Albumin 3.6 Triglycerides 77 Cholesterol 174 Total LDL Cholesterol 85 HDL Cholesterol 70 H HOSPITAL COURSE: Date of Admission:08/25/17 Date of Discharge: 08/26/17 47 year-old with a PMH significant for HTN and mitral valve prolapse. Placed on observation for syncopal episode. NSTEMI Syncope Bradycardia --prodrome of eye redness and burning sensation, palpitations and lightheadedness; sat down and passed out in chair; next thing remembers is EMS presence; no report of seizure-type activity, daughter witnessed entire episode , incontinence of urine --troponins: 0.10-->0.16-->0.10 --Echo: LV normal; RV normal; mild MR; mild TR; mild to moderate PI --Exercise nuclear stress: small, mild basal to mid lateral, distal anterolateral, and anteroapical wall defects slightly worse on stress imaging; cannot r/o mild ischemia --avoid beta blockade and nitrates due to bradycardia and possible posterior ischemia --plan to transfer patient to [facility] for cardiac cath --continue ASA, Lipitor, Plavix, full-dose lovenox Hypertension --continue losartan Minutes to complete discharge: 35 Discharge Summary Reason For Visit: NON-ST ELEVATION(NSTEMI)MYOCARDIAL INFARCTION Current Active Problems Palpitations (Acute) Condition: Good - Instructions Diet, Activity, Other Instructions: Please return to the Emergency Department for any chest pain, shortness of breath, new/worsening/concerning symptoms. Please see your PCP in the next 1 week for follow up care. Referrals: Gianni Anaya [Primary Care Provider] - - Home Medications Comprehensive Discharge Medication List: Ambulatory Orders Losartan/Hydrochlorothiazide [Losartan-Hctz 100-12.5 mg Tab] 1 each PO DAILY 04/03 This patient is new to me today: No Emergency Visit: Yes ED Registration Date: 08/25/17 Care time: The patient presented to the Emergency Department on the above date and was hospitalized for further evaluation of their emergent condition. Critical Care patient: No - Discharge Referral Referred to [facility] Med P.C.: No
[2017-08-26] MEDS: ATORVASTATIN CA 80 MG TABLET (FP) PO SCH (21:40)
[2017-08-26 23:35] VITALS: BP 146/85; PULSE 62; TEMP 97.5
== END 2017-08-26 23:15 | disposition short-term general hospital (02) | DRG 282 ==
LOC: JER 21:40 → OBSVTOIN 08-25 03:06 → JERBED 08-25 03:06 → UNDOADMOB 08-25 03:10 → J4W 08-25 04:19
PROVIDERS: ADMIT Internal Medicine; ATTEND Nurse Practitioner Acute Care
DX: I21.4 Non-ST elevation (NSTEMI) myocardial infarction (principal); R55 Syncope and collapse; I10 Essential (primary) hypertension; I34.1 Nonrheumatic mitral (valve) prolapse; R32 Unspecified urinary incontinence; R00.2 Palpitations; R94.31 Abnormal electrocardiogram [ECG] [EKG]; R00.1 Bradycardia, unspecified
CPT/HCPCS: 36415; 70450-TC; 71020-TC; 78452-TC; 80048; 80053; 80061; 82550; 82553; 83721; 83735; 84100; 84439; 84481; 84484; 85025; 90688; 93005; 93010; 93017; 93306-TC; 93880-TC; 99285-25; A9502; G0008

== ENCOUNTER 2019-09-17 00:45 | Emergency (ER) | payer BC ==
--- NOTE | 2019-09-17 00:55 | PDOC ---
History of Present Illness - General Chief Complaint: Pain Stated Complaint: R fifth finger pain Time Seen by Provider: 09/17/19 00:51 - History of Present Illness Initial Comments: 09/17/19 01:17 This 49-year-old man with a history of HTN/HLD presents with increasing pain in right fifth finger. 1 week ago, the patient sustained full-thickness skin avulsion injury of the tip of the right fifth finger (patient accidentally cut the area with scissors). He was seen at an urgent care center where bleeding was controlled with Surgicel. Patient has been keeping the area(wound still covered with hemostatic material) dry and protected as instructed. Earlier today, he noted an increase in discomfort and swelling in the finger. Also, there is a small border of ecchymosis at the edge of the wound dressing. No discharge or lymphangitic streaking noted. Patient has not had fever/chills. No previous history of wound healing difficulties. No history of resistant organism infection or colonization Past History - Past Medical History Allergies/Adverse Reactions: Allergies Allergy/AdvReac Type Severity Reaction Status Date / Time No Known Allergies Allergy Verified 09/17/19 00:50 Home Medications: Ambulatory Orders Aspirin [ASA -] 81 mg PO DAILY tab.chew 08/26/17 Atorvastatin Ca [Lipitor] 80 mg PO HS tablet 08/26/17 Clopidogrel Bisulfate [Plavix -] 75 mg PO DAILY tablet 08/26/17 Enoxaparin [Lovenox -] 100 mg SQ BID disp.syrin 08/26/17 Losartan Potassium [Cozaar -] 100 mg PO DAILY tablet 08/26/17 Amox-Tr/K Cl [Augmentin - 875Mg Tablet] 1 tab PO BID #14 tablet 09/17/19 COPD: No HTN: Yes - Immunization History Immunization Up to Date: Yes - Psycho Social/Smoking Cessation Hx Smoking History: Never smoked Have you smoked in the past 12 months: No Hx Alcohol Use: No Drug/Substance Use Hx: No Substance Use Type: None Hx Substance Use Treatment: No Review of Systems - Review of Systems Able to Perform ROS?: Yes Comments:: 12 point review of systems is negative except for what is noted in the history of present illness *Physical Exam - Physical Exam GENERAL: HEAD: Normal with no signs of trauma. EYES: PERRLA, EOMI, sclera anicteric, conjunctiva clear. EXTREMITIES: Right fifth finger-1 cm x 0.5 cm oval shaped wound of the dorsum distal phalanx (hemostatic material still adherent to wound) Narrow (1 to 2 mm) ecchymotic area at edge of wound; no fluctuance or discharge Moderate edema of distal and middle phalanx; no lymphangitic streaking; moderate tenderness of distal phalanx No pain on active or passive flexion/ extension of finger Remainder of the extremity exam is normal NEUROLOGICAL: Cranial nerves II through XII grossly intact. Normal speech. No focal neurological deficits. Medical Decision Making - Medical Decision Making This 49-year-old man with no previous history of wound healing problems presents with increased pain/swelling around skin avulsion wound sustained and treated 1 week ago. Patient has Surgicel material adherent to the avulsion site. There is no purulent drainage or fluctuance of the area. No lymphangitic streaking or pain on movement of the finger. Clinical presentation most consistent with early cellulitis of the right fifth finger after skin avulsion injury. Patient has no previous history of MRSA or other resistant organisms. He has no allergy or sensitivities to antibiotics and will be started on Augmentin 875/125 twice a day for 1 week. First dose given here in the emergency room. The patient has been instructed to take the antibiotic with a meal. Patient has no referral information to plastic/hand surgery. He will be given referral information for (he should call office in the morning to arrange follow-up within the next 5 to 7 days.) Patient should return to the ER immediately if he has worsening edema/pain/ erythema or if he develops lymphangitic streaking/pain with movement of the finger. Discharge - Discharge Information Problems reviewed: Yes Clinical Impression/Diagnosis: Cellulitis Qualifiers: Site of cellulitis: extremity Site of cellulitis of extremity: finger Laterality: right Qualified Code(s): L03.011 - Cellulitis of right finger Condition: Stable Disposition: HOME - Additional Discharge Information Prescriptions: Amox-Tr/K Cl [Augmentin - 875Mg Tablet] 1 tab PO BID #14 tablet - Follow up/Referral Referrals: Neeraj Manjarrez MD [Staff Physician] - - Patient Discharge Instructions Patient Printed Discharge Instructions: Cellulitis Additional Instructions: Augmentin 875/125 twice a day for 1 week; take medication with a meal Return to ER if you have increasing pain/swelling/redness/fever Follow-up with hand surgeon, Dr. Manjarrez 5 to 7 days(call office in AM to arrange appointment) Followup with your general doctor in 1 week - Post Discharge Activity
[2019-09-17 01:00] VITALS: BP 177/102; PULSE 62; TEMP 98.5; BMI 32.5
[2019-09-17] MEDS ORDERED: AMOX TR/POT CLAV 875MG/125MG TABLETS (FP) PO ONE (01:07)
[2019-09-17] MEDS ORDERED: AMOX TR/POT CLAV 875MG/125MG TABLETS (FP) ONE (01:09)
== END 2019-09-17 01:17 | disposition home or self-care (01) ==
LOC: FER 00:45
DX: L03.011 Cellulitis of right finger (principal); I10 Essential (primary) hypertension; E78.5 Hyperlipidemia, unspecified
CPT/HCPCS: 99282-25